=== PATIENT | male | born 1985 | race Caucasian/White ===

== ENCOUNTER 2017-10-05 01:18 | Emergency (ER) | payer SELFPAY ==
[2017-10-05 01:19] VITALS: BP 153/97; PULSE 104; RESP 19; TEMP 36.7; O2SAT 98; BMI 35.3
--- NOTE | 2017-10-05 01:54 | ED.VISSUMM ---
- ER Visit Summary Date of Service: 10/05/17 Chief Complaint: Earache on the right side History of Present Illness: The patient is a 32 M states he has had ear discomfort for 1-2 weeks. Feels like he can blow air out of his right ear canal. He denies however any pus or blood or discharge. Says his hearing is muffled bilaterally. Denies sore throat. Denies fever. He did have ear tubes as a small child. Physical Examination: Well-appearing male. Vital signs are stable afebrile. He does not look septic or toxic. He is in no acute distress. HEENT exam posterior pharynx unremarkable. Left TM is dull and red. Right TM is dull and red also. I do not see a perforation but by history it sounds like he may have perforated his right eardrum. But I do not see any blood in the canal. Or any obvious perforation at this time. Neck is nontender without lymphadenopathy. Lungs clear to auscultation bilaterally. Heart regular rhythm no murmur. Abdomen is soft and nontender. He is moving all 4 extremities. Neurologic exam is unremarkable. Test Results: None Emergency Department Course and Treatment: 1 dose of amoxicillin here. Treatment Plan: Amoxicillin 3 times daily for 10 days. Tylenol Motrin for pain. Follow-up with ENT if not improving. Disposition: Discharge Impression: Bilateral otitis media Rule out right ear perforation This note was generated with [employer] dictation software. It may contain incorrect words, spelling, and punctuation that were not noted in review of the chart prior to signing ED Disposition - Plan for ED Patient: Chief Complaint: Ear Problem Referrals: Care Physician,No Primary [Primary Care Provider] -
--- NOTE | 2017-10-05 01:56 | ED.DEP ---
ED Disposition - Plan for ED Patient: Disposition: Home or Assisted Living Chief Complaint: Ear Problem Instructions: ED Otitis Media Acute Adult Prescriptions: Amoxicillin 500 mg PO TID 10 Days tab Referrals: Parth Manning MD [STAFF PHYSICIAN] - Additional Instructions: Motrin and Tylenol for pain. Amoxicillin 3 times a day for 10 days to treat your ear infections. If not improving follow-up with Dr. Parth Manning as an ear nose and throat doctor.
[2017-10-05] MEDS: AMOXICILLIN 500 MG CAPSULE PO (03:06)
--- NOTE | 2017-10-05 03:09 | ED.RN ---
DISCHARGE INSTRUCTIONS GIVEN TO AND REVIEWED WITH PATIENT, PATIENT DENIES QUESTIONS OR CONCERNS AND VOICES UNDERSTANDING OF DISCHARGE INSTRUCTIONS. PT AMBULATES OUT OF ROOM WITHOUT DIFFICULTY.
== END 2017-10-05 03:10 | disposition home or self-care (01) ==
PROVIDERS: Emergency Provider Emergency Medicine
DX: H66.93 Otitis media, unspecified, bilateral (principal); Z72.0 Tobacco use
CPT/HCPCS: 99283

== ENCOUNTER 2018-09-26 08:45 | Emergency (ER) | payer MEDICAID, SELFPAY ==
[2018-09-26 08:47] VITALS: BP 138/78; PULSE 111; RESP 17; TEMP 36.7; O2SAT 98; BMI 36.6
[2018-09-26 09:50] VITALS: BP 130/89; PULSE 95; RESP 13; TEMP 36.6; O2SAT 95
[2018-09-26 10:44] VITALS: BP 138/91; PULSE 94; RESP 14; O2SAT 99
[2018-09-26 10:45] VITALS: BP 131/99; BP 134/88; BP 141/98; BP 142/100; PULSE 103; PULSE 94; PULSE 95; RESP 13; RESP 14; RESP 16; RESP 18; O2SAT 100; O2SAT 97; O2SAT 99
[2018-09-26 11:01] VITALS: BP 131/99; PULSE 96; PULSE 97; RESP 14; RESP 16; TEMP 36.6; O2SAT 96; O2SAT 97
--- NOTE | 2018-09-26 11:11 | ED.DCSUM_ITS ---
- ER Visit Summary Date of Service: 09/26/18 Chief Complaint: Perineal abscess History of Present Illness: The patient is a 33 M who presents with a 1 week history of pain and swelling in his perineum. He states there is been some spontaneous drainage from it but it continues to enlarge. He notes irritation of the bilateral thighs from the drainage. No fevers. No history of the same. He has a history of drug addiction and is currently on Suboxone Physical Examination: Afebrile vital signs are stable There is an obvious 2 cm abscess in the perineum on the left side of midline. There is minimal erythema. This does not appear to involve the scrotum/penis or the perianal area. Sensation is intact. Emergency Department Course and Treatment: Patient provided informed consent for the use of etomidate for procedural sedation to perform incision and drainage. Patient received 15 mg of etomidate. Adequate sedation was rapidly achieved the abscess was locally anesthetized with 1% lidocaine. 1 cm incision was made with expression of large amount of pus. Wound was gently probed for loculations and irrigated. It was packed with about 6 inches of iodoform packing. Patient recovered without incident. Patient will be placed on Keflex and Bactrim. I have asked that he follow-up with general surgery. Local wound care at home discussed. Packing will need to be removed in 72 hours. Impression: 1. Perineal abscess 2. Incision and drainage by physician 3. Procedural sedation by physician This note was generated with [employer] dictation software. It may contain incorrect words, spelling, and punctuation that were not noted in review of the chart prior to signing ED Disposition - Plan for ED Patient: Disposition: Home or Assisted Living Instructions: ED Abscess IandD Prescriptions: Cephalexin [Keflex] 500 mg PO Q6 #28 cap Smz/Tmp Ds [Bactrim Ds] 1 tab PO BID #14 tab Referrals: Ad Mcguire MD [STAFF PHYSICIAN] - (in 2-3 days for wound check)
[2018-09-26 11:28] VITALS: BP 131/99; PULSE 97; RESP 18; O2SAT 95
== END 2018-09-26 11:29 | disposition home or self-care (01) ==
PROVIDERS: Emergency Provider Emergency Medicine
DX: L02.215 Cutaneous abscess of perineum (principal); K21.9 Gastro-esophageal reflux disease without esophagitis; Z72.0 Tobacco use; Z79.899 Other long term (current) drug therapy
CPT/HCPCS: 10060; 96374; 99284; J7030; A4216

== ENCOUNTER 2019-05-26 18:44 | Emergency (ER) | payer MEDICAID, SELFPAY ==
[2019-05-26 18:45] VITALS: BP 146/116; PULSE 106; RESP 15; TEMP 36.8; O2SAT 97; BMI 30.8
--- NOTE | 2019-05-26 20:03 | ED.DCSUM_ITS ---
- ER Visit Summary Date of Service: 05/26/19 Chief Complaint: Rash History of Present Illness: The patient is a 34 M who presents with a rash over his body. This has been there for weeks. It is itchy and red. He believes he was exposed to some kind of bugs or mites. He says that occasionally something that looks like a small wire comes out of the wounds. He denies any travel. Denies any fever or systemic symptoms. 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 He is currently on Suboxone. He has occasional diarrhea but no other symptoms. Physical Examination: Afebrile and vital signs unremarkable. Alert and oriented. No acute distress. Patient has multiple slightly raised erythematous lesions over his skin diffusely. Some of them appear to be excoriated and they appear to be slightly different ages. I do not appreciate any foreign bodies or breaks in the skin. Palms and soles are not involved. No painful nodules or splinter hemorrhages. No skin peeling. Eyes and mucous membranes are unremarkable. Heart regular rate and rhythm. No murmurs. Lungs clear. Abdomen soft and nontender. Test Results: None indicated Emergency Department Course and Treatment: Patient's rash appears to be consistent with some type of bites with excoriation. Some of them appeared like they may be developing a surrounding infection. There is no abscess. No red flag features. Will treat with Benadryl, Bactrim, Keflex. Follow-up as an outpatient for further evaluation. Return for any new or worsening issues. Treatment Plan: As above Disposition: Discharge Impression: 1. Rash This note was generated with [employer] dictation software. It may contain incorrect words, spelling, and punctuation that were not noted in review of the chart prior to signing ED Disposition - Plan for ED Patient: Referrals: Care Physician,No Primary [Primary Care Provider] -
--- NOTE | 2019-05-26 20:06 | ED.DEP ---
ED Disposition - Plan for ED Patient: Instructions: Self-Care for Skin Rashes Prescriptions: Smz/Tmp Ds [Bactrim Ds] 1 tab PO BID #14 tab Prescription Printed Cephalexin [Keflex] 500 mg PO Q12 #14 cap Prescription Printed Referrals: Celeste Ram [NON-STAFF] -
[2019-05-26 20:28] VITALS: BP 115/99; PULSE 85; RESP 18; TEMP 36.8; O2SAT 97
[2019-05-26] MEDS: Cephalexin 250 MG Capsule 500 MG PO (20:30)
[2019-05-26] MEDS: Smz/Tmp Ds Tablet 1 TABLET PO (20:30)
[2019-05-26] MEDS: DiphenhydrAMINE 25 MG Capsule PO (20:30)
--- NOTE | 2019-05-26 20:34 | ED.RN ---
PT EDUCATED ON HOME GOING INSTRUCTIONS AND PRESCRIPTIONS. PT VERBALIZES UNDERSTANDING AND DENIES ANY FURTHER QUESTIONS. PT DRESSES SELF AND AMBULATES OUT OF DEPT BY SELF.
== END 2019-05-26 20:35 | disposition home or self-care (01) ==
LOC: ED 20:15
PROVIDERS: Emergency Provider Emergency Medicine
DX: R21 Rash and other nonspecific skin eruption (principal); F15.10 Other stimulant abuse, uncomplicated; Z72.0 Tobacco use
CPT/HCPCS: 99283

== ENCOUNTER 2021-07-23 16:59 | Emergency (ER) | payer BC, MEDICAID, SELFPAY ==
[2021-07-23 17:00] VITALS: BP 120/88; PULSE 106; RESP 16; TEMP 36.2; O2SAT 96; BMI 42.3
--- NOTE | 2021-07-23 18:43 | EDS_ITS ---
HPI HPI - URI History of Present Illness Chief Complaint: Weakness Detail of Chief Complaint: Nausea and vomiting Informant: patient Onset/Context/Timing Onset: Days Context: Gradual Onset Timing: Continuous Current Severity: Mild Maximum Severity: Mild Associated Symptoms Associated Symptoms: Positive for Nasal Congestion, Myalgias, Nausea, Vomiting and Nonproductive cough; Negative for Diarrhea Narrative Narrative: 36 -year-old diabetic male who states that less of days he has felt very well with some mild nausea and vomiting. Rhinorrhea and cough. He is unvaccinated against Covid. Also his mental sleep as well because he is out of his amitriptyline which has been unable to get refilled as of yet. He denies any fever nor abdominal pain. No dysuria. Prior similar symptoms: Yes Recent Illness/Hospitalization: No ROS ROS ED ROS Narrative Nausea and vomiting. Cough. Review of Systems ROS Unobtainable: Denies due to encephalopathy Constitutional Constitutional ED: Denies chills or fever(s) Eyes Eyes: Denies change in vision ENT ENT ED: Denies ear pain Cardiovascular Cardiovascular: Denies chest pain or palpitations Respiratory/Chest Respiratory/Chest: Reports cough; Denies dyspnea Gastrointestinal Gastrointestinal: Reports nausea and vomiting; Denies abdominal pain or diarrhea Genitourinary Genitourinary ED: Denies dysuria Musculoskeletal Musculoskeletal: Reports myalgias Integumentary Denies rash Neurologic Neurologic: Denies headache(s) Psychiatric Psychiatric: Denies depression Endocrine Endocrinology: Denies polyuria Hematologic/Lymphatic Hematologic/Lymphatic: Denies easy bruising Allergic/Immunologic Allergic/Immunologic ED: Denies urticaria PFSH PFS Medical History Depression Home Medications esomeprazole magnesium [Nexium] 20 mg PO PRN PRN 10/29/16 [History Last Taken 11/05/16 07:00] cephalexin 500 mg PO Q6 #28 cap 09/26/18 [Rx Last Taken Unknown] sulfamethoxazole-trimethoprim 1 tab PO BID #14 tab 09/26/18 [Rx Last Taken Unknown] cephalexin 500 mg PO Q12 #14 cap 05/26/19 [Rx Last Taken Unknown] sulfamethoxazole-trimethoprim 1 tab PO BID #14 tab 05/26/19 [Rx Last Taken Unknown] amitriptyline 50 mg PO QHS 7 Days #7 tab 07/23/21 [Rx Last Taken Unknown] Allergy/AdvReac Type Severity Reaction Status Date / Time morphine AdvReac Nausea Verified 09/26/18 08:47 Social History Smoking Status: Former smoker EXAM Physical Exam Narrative Exam Narrative: 36-year-old male no acute distress vital signs stable afebrile. Pulse ox 96% on room air no signs hypoxia. He does not look septic nor toxic nor dehydrated. HEENT exam unremarkable. Moist remembers. Neck nontender no JVD no lymphadenopathy. Lungs clear to auscultation bilaterally. Heart regular rhythm rate about 100 no murmur. Abdomen normal obese with soft nontender nondistended normal bowel sounds no peritoneal signs. Patient moving all 4 extremities. Ca lves are nontender without edema or cords. Exam is benign and consistent with a viral syndrome. Const Vital Signs: 07/23/21 17:00 07/23/21 18:38 Temperature 97.1 F L Temperature Source Temporal Pulse Rate 106 H Respiratory Rate 16 Respiratory Effort Non-Labored Blood Pressure 120/88 H Blood Pressure Mean 98 Pulse Ox 96 Oxygen Delivery Method Room Air Positive well nourished, well developed and obese; Negative for cachectic or contractures General Appearance ED: well developed and NAD; Negative for cachectic, contractures, cyanotic, diaphoretic or pallor Nutritional Appearance: obese; Negative for cachectic HEENT Reports moist mucous membranes normocephalic and atraumatic; Negative for scalp tenderness Face and Sinus: Negative for sinus tenderness External Ear: external ears normal Eyes PERRL and EOMs intact bilaterally Neck no lymphadenopathy, supple, no meningeal signs and no JVD General: Negative for anterior neck swelling or lymphadenopathy Resp normal respiratory effort and clear to auscultation bilaterally Auscultation: Negative for rales, rhonchi or wheezes Cardio S1 normal heart sound, S2 normal heart sound and no murmurs Rate: regular rate Rhythm: regular rhythm GI non-tender, non-distended and no masses Inspection: Negative for abdominal distention Auscultation: normoactive bowel sounds Palpation: soft; Negative for tender or guarding Back/Spine no CVA tenderness and normal ROM General Back: CVA tenderness Cervical Spine: Negative for cervical spine tenderness Thoracic Spine / Upper Back: Negative for thoracic spinal tenderness Extremity normal to inspection and full ROM General Extremety ED: Negative for cyanosis or tenderness General Extremity: Negative for cyanosis Neuro oriented x3 Sensorium / Orientation: alert, oriented to person, oriented to place and oriented to time; Negative for orientation impaired, lethargic or stuporous Motor Exam: strength 5/5 throughout; Negative for general weakness or strength abnormal Psych mental status grossly normal Attitude: No agitated Mood & Affect: Negative for depressed or tearful Skin General Skin Exam: Negative for jaundice or pallor Lesions: no lesions Rashes: no rashes MDM MDM MDM Narrative Medical decision making narrative: 36-year-old male with a viral syndrome. Will check his blood sugars since he is diabetic and obtain a Covid test. Treated with p.o. Motrin. Repeat and patient is doing well at 7: 52 p.m. and will be discharged home. Treat as a viral syndrome. Fluids and rest. Lab Data Attestation: I reviewed the patient's lab results. Lab results narrative: Covid test is negative. Labs: Laboratory Results - last 24 hr 07/23/21 18:51 POC Glucose 137 H Discharge Plan Triage Chief Complaint: Weakness Other Complaint: Shortness of Breath ED Provider: Chapo Eagle Dx/Rx/DC Orders Clinical Impression: Viral syndrome, History of diabetes mellitus, Has run out of medications Instructions: ED Viral Syndrome (Adult) Prescriptions: New amitriptyline 50 mg tablet 50 mg PO QHS 7 Days Qty: 7 RF: 0 No Action esomeprazole magnesium [Nexium] 20 MG capsule 20 mg PO PRN PRN (Reason: Heartburn) RF: 0 sulfamethoxazole-trimethoprim 1 TABLET tablet 1 tab PO BID Qty: 14 RF: 0 cephalexin 500 MG capsule 500 mg PO Q6 Qty: 28 RF: 0 sulfamethoxazole-trimethoprim 1 TABLET tablet 1 tab PO BID Qty: 14 RF: 0 cephalexin 500 MG capsule 500 mg PO Q12 Qty: 14 RF: 0 Primary Care Provider: Care Physician,No Primary Referrals: Care Physician,No Primary [Primary Care Provider] - Activity Restrictions/Additional Instructions: Plenty of fluids and rest. I wrote you for a week's worth of amitriptyline take it as prescribed. Follow-up with your primary care physician. Watch your blood sugars closely. Disposition Disposition: Home, Self Care
[2021-07-23] MEDS: Ibuprofen 600 MG Tablet PO (18:48)
[2021-07-23 18:56] LABS: Bedside Glucose 137 mg/dL (70-110)
[2021-07-23 19:57] VITALS: RESP 16
== END 2021-07-23 20:01 | disposition home or self-care (01) ==
PROVIDERS: Emergency Provider Emergency Medicine; Visit Provider Emergency Medicine
DX: B34.9 Viral infection, unspecified (principal); E11.9 Type 2 diabetes mellitus without complications; R11.2 Nausea with vomiting, unspecified; R06.02 Shortness of breath; Z87.891 Personal history of nicotine dependence; R09.81 Nasal congestion; M79.10 Myalgia, unspecified site; R53.1 Weakness; R05.9 Cough, unspecified
CPT/HCPCS: 82962; 87426; 99283

== ENCOUNTER 2023-03-05 06:49 | Emergency (ER) | payer MEDICAID, SELFPAY ==
[2023-03-05 06:55] VITALS: BP 156/86; PULSE 76; RESP 16; TEMP 36.6; O2SAT 98; BMI 45.3
--- NOTE | 2023-03-05 07:27 | EDS_ITS ---
HPI History of Present Illness Chief Complaint: GI Bleed Narrative Narrative: Patient presents with a bleeding hemorrhoid. He lifts heavy at work and has been somewhat constipated recently. He has a history of hemorrhoids in the past. No fevers or chills no abdominal pain. [facility] Medical History Depression Home Medications esomeprazole magnesium 20 mg capsule,delayed release (Nexium) 20 mg PO PRN PRN Heartburn 10/29/16 [History Last Taken 11/05/16 07:00] sulfamethoxazole 800 mg-trimethoprim 160 mg tablet 1 tab PO BID #14 tabs 09/26/18 [Rx Last Taken Unknown] sulfamethoxazole 800 mg-trimethoprim 160 mg tablet 1 tab PO BID #14 tabs 05/26/19 [Rx Last Taken Unknown] divalproex 500 mg tablet,delayed release 250 mg PO DAILY 03/05/23 [History Last Taken Unknown] docusate sodium 100 mg capsule (Colace) 100 mg PO BID #30 caps 03/05/23 [Rx Last Taken Unknown] lamotrigine 200 mg tablet 200 mg PO DAILY 03/05/23 [History Last Taken Unknown] metformin 500 mg tablet 500 mg PO BID 03/05/23 [History Last Taken Unknown] pantoprazole 40 mg tablet,delayed release 40 mg PO DAILY 03/05/23 [History Last Taken Unknown] Allergy/AdvReac Type Severity Reaction Status Date / Time morphine AdvReac Nausea Verified 03/05/23 06:51 Social History Smoking Status: Former smoker ROS ROS ED ROS Narrative General: No fever Gastrointestinal: No abdominal pain, nausea vomiting or diarrhea. Some constipation Rectal: Hemorrhoid as in HPI Genitourinary: No dysuria Musculoskeletal: Denies myalgias no difficulty with ambulation EXAM Physical Exam Narrative Exam Narrative: Physical exam General: Well nourished, Well developed, No Acute Distress Head: Normocephalic, Atraumatic Abdomen: Soft, Nontender, Nondistended Rectal there is an external hemorrhoid which is painful and thrombosed. Back: Nontender, Normal Inspection. Negative for: CVA tenderness Extremities: Nontender, No edema Skin: Normal color, No rash Const Vital Signs: 08/09/23 06:55 Temperature 97.8 F Temperature Source Oral Pulse Rate 76 Respiratory Rate 16 Blood Pressure 156/86 H Blood Pressure Mean 109 Pulse Ox 98 Oxygen Delivery Method Room Air MDM MDM MDM Narrative Medical decision making narrative: Patient has external hemorrhoid with some bleeding. I do not believe there is an upper or lower GI bleed I believe all his bleeding is from the hemorrhoid since I am visualizing. The hemorrhoid was drained since it is thrombosed. Patient will be discharged with stool softeners. At this time I do not see a reason for antibiotics. I will refer to GI for definitive management. Procedures Other Procedures Procedure(s): Incision and drainage of thrombosed external hemorrhoid Verbal consent 1% lidocaine about 4 mL were used I used a #15 blade and made 2 small incisions on either side of the hemorrhoid I used hemostats to break the clots, pressure was used and the clots were removed. Patient tolerated procedure well. Discharge Plan Triage Chief Complaint: GI Bleed ED Provider: Gadiel Caro Dx/Rx/DC Orders Clinical Impression: External hemorrhoid, thrombosed, RB (rectal bleeding) Instructions: ED Hemorrhoids Prescriptions: New docusate sodium [Colace] 100 mg capsule 100 mg PO BID Qty: 30 0RF No Action esomeprazole magnesium [Nexium] 20 MG capsule 20 mg PO PRN PRN (Reason: Heartburn) sulfamethoxazole-trimethoprim 1 TABLET tablet 1 tab PO BID Qty: 14 0RF sulfamethoxazole-trimethoprim 1 TABLET tablet 1 tab PO BID Qty: 14 0RF metformin 500 mg tablet 500 mg PO BID Patient Comments: take 1 tablet by mouth twice a day with meals pantoprazole 40 mg tablet,delayed release (DR/EC) 40 mg PO DAILY lamotrigine 200 mg tablet 200 mg PO DAILY Patient Comments: TAKE 1 TABLET BY MOUTH EVERY DAY divalproex 500 mg tablet,delayed release (DR/EC) 250 mg PO DAILY Patient Comments: take 1 tablet by mouth once daily Stand Alone Forms: ED Work / School Excuse Primary Care Provider: JD SEGURA Referrals: Kaleb Garcia DO [Med Staff - Active Staff] - 3-5 Days JD SEGURA NP-C [Primary Care Provider] - Disposition Disposition: Home, Self Care
[2023-03-05] MEDS: Lidocaine 1% (20 ml mdv) 20 ML Vial INFILT (07:41)
== END 2023-03-05 07:45 | disposition home or self-care (01) ==
PROVIDERS: Emergency Provider Emergency Medicine; PCP Nurse Practitioner; Visit Provider Emergency Medicine
DX: K64.5 Perianal venous thrombosis (principal); Z87.891 Personal history of nicotine dependence
CPT/HCPCS: 46083; 99282

== ENCOUNTER 2023-05-01 08:23 | Emergency (ER) | payer MEDICAID, SELFPAY ==
[2023-05-01 08:24] VITALS: BP 138/85; PULSE 85; RESP 16; TEMP 36.6; O2SAT 97; BMI 43.7
--- NOTE | 2023-05-01 08:47 | EDS_ITS ---
HPI HPI - GI History of Present Illness Chief Complaint: GI Bleed Detail of Chief Complaint: Rectal bleeding. Informant: patient Abdominal Pain/Flank Pain Onset: Today Context: Gradual Onset Timing: Intermittent Current Severity: Mild Maximum Severity: Mild Nausea/Vomiting/Emesis GI Symptom: Negative for Nausea or Vomiting Diarrhea/Melena/Hematochezia GI Symptom: Positive for Diarrhea Onset: Yesterday Associated Symptoms Associated Symptoms: Negative for Dysuria, Frequency or Hematuria Narrative Narrative: 38-year-old male history of prior hemorrhoids, diabetes, hypertension and mental health issues. He is on no blood thinners. He had diarrhea yesterday. Today he noticed some rectal bleeding. No significant pain. No fever. Denies any hematemesis. No black stools. Denies feeling anemic. No bruising or nosebleeds. Prior history of hemorrhoids that were excised. Prior similar symptoms: Yes Recent Illness/Hospitalization: No PFSH [facility] Medical History Depression Home Medications esomeprazole magnesium 20 mg capsule,delayed release (Nexium) 20 mg PO PRN PRN Heartburn 10/29/16 [History Last Taken 11/05/16 07:00] sulfamethoxazole 800 mg-trimethoprim 160 mg tablet 1 tab PO BID #14 tabs 09/26/18 [Rx Last Taken Unknown] sulfamethoxazole 800 mg-trimethoprim 160 mg tablet 1 tab PO BID #14 tabs 05/26/19 [Rx Last Taken Unknown] divalproex 500 mg tablet,delayed release 250 mg PO DAILY 03/05/23 [History Last Taken Unknown] docusate sodium 100 mg capsule (Colace) 100 mg PO BID #30 caps 03/05/23 [Rx Last Taken Unknown] lamotrigine 200 mg tablet 200 mg PO DAILY 03/05/23 [History Last Taken Unknown] metformin 500 mg tablet 500 mg PO BID 03/05/23 [History Last Taken Unknown] pantoprazole 40 mg tablet,delayed release 40 mg PO DAILY 03/05/23 [History Last Taken Unknown] Allergy/AdvReac Type Severity Reaction Status Date / Time morphine AdvReac Nausea Verified 05/01/23 08:24 Social History Smoking Status: Former smoker ROS ROS ED ROS Narrative Diarrhea yesterday. Review of Systems ROS Unobtainable: Denies due to encephalopathy Constitutional Constitutional ED: Denies chills or fever(s) ENT ENT ED: Denies ear pain Cardiovascular Cardiovascular: Denies chest pain Respiratory/Chest Respiratory/Chest: Denies cough or dyspnea Gastrointestinal Gastrointestinal: Reports diarrhea; Denies abdominal pain, constipation, melena, nausea or vomiting Genitourinary Genitourinary ED: Denies dysuria or hematuria Musculoskeletal Musculoskeletal: Denies arthralgias Integumentary Denies abscess Neurologic Neurologic: Denies headache(s) Psychiatric Psychiatric: Denies anxiety Endocrine Endocrinology: Denies polydipsia Hematologic/Lymphatic Hematologic/Lymphatic: Denies easy bleeding Allergic/Immunologic Allergic/Immunologic ED: Denies mouth swelling or tongue swelling EXAM Physical Exam Narrative Exam Narrative: Well-appearing 38-year-old male. Vital signs stable afebrile. Blood pressure 138/85. Patient does not look septic toxic or in distress. HEENT exam unremarkable. Lungs clear. Heart regular rhythm no murmur. Rate about 85. Abdomen soft nontender. Moving all 4 extremities. Annual exam he had 2 small hemorrhoids. They were not significantly tender. There was currently no blood or active bleeding. The medical student did the rectal exam showed brown stool. Small amount of blood. No large clots. Neurologically is awake and alert. Const Vital Signs: 05/01/23 08:24 Temperature 98 F Temperature Source Temporal Pulse Rate 85 Respiratory Rate 16 Blood Pressure 138/85 H Blood Pressure Mean 102 Pulse Ox 97 Oxygen Delivery Method Room Air Positive well nourished and well developed; Negative for cachectic, contractures or unkempt General Appearance ED: well developed and NAD; Negative for unkempt, cachectic, contractures or pallor Nutritional Appearance: Negative for cachectic HEENT Reports moist mucous membranes normocephalic and atraumatic; Negative for trauma or tenderness Eyes EOMs intact bilaterally General Eye ED: Negative for pale conjunctiva or scleral icterus Neck no lymphadenopathy, supple and no JVD General: Negative for tenderness Carotids: Negative for other Lymph Lymphatic: Negative for other Resp normal respiratory effort and clear to auscultation bilaterally Effort and Inspection: Negative for respiratory distress Auscultation: Negative for rales, rhonchi or wheezes Cardio regular rate, regular rhythm, S1 normal heart sound, S2 normal heart sound and no murmurs Rate: Negative for bradycardia or tachycardic Rhythm: Negative for abnormal rhythm GI non-tender, non-distended and no masses GI Narrative: 2 small external hemorrhoids. No active bleeding or blood currently. Inspection: Negative for abdominal distention Auscultation: normoactive bowel sounds Palpation: soft; Negative for tender or guarding Back/Spine no CVA tenderness General Back: Negative for CVA tenderness Cervical Spine: Negative for cervical spine tenderness Thoracic Spine / Upper Back: Negative for thoracic spinal tenderness Lumbar Spine / Lower Back: Negative for lumbar spinal tenderness Coccyx: Negative for other Extremity full ROM General Extremety ED: Negative for edema or tenderness General Extremity: Negative for edema Neuro CN's II-XII intact bilaterally and moves all extremities Sensorium / Orientation: alert, oriented to person, oriented to place and oriented to time Motor Exam: strength 5/5 throughout Psych mental status grossly normal and thought process normal Appearance: Negative for unkempt Attitude: No agitated Mood & Affect: Negative for depressed, anxious or tearful Skin no wounds General Skin Exam: Negative for jaundice or pallor Lesions: no lesions Rashes: no rashes Trauma: Negative for abrasion Nails: Negative for discolored MDM MDM MDM Narrative Medical decision making narrative: 2-year-old male small rectal bleeding suspected secondary to hemorrhoids. He clinically has no signs of anemia, looks well and is not complaining of symptoms of fatigue or weakness. I do not think he needs any blood work. This just occurred today. There is no significant large thrombosed hemorrhoid. He does not need anything I&D. He will do outpatient follow-up with general surgery. Hemorrhoid cream and sitz bath's. Discharge Plan Triage Chief Complaint: GI Bleed ED Provider: Chapo Eagle Dx/Rx/DC Orders Clinical Impression: Bleeding external hemorrhoids, Rectal bleeding Instructions: ED Hemorrhoids Prescriptions: No Action esomeprazole magnesium [Nexium] 20 MG capsule 20 mg PO PRN PRN (Reason: Heartburn) sulfamethoxazole-trimethoprim 1 TABLET tablet 1 tab PO BID Qty: 14 0RF sulfamethoxazole-trimethoprim 1 TABLET tablet 1 tab PO BID Qty: 14 0RF metformin 500 mg tablet 500 mg PO BID Patient Comments: take 1 tablet by mouth twice a day with meals pantoprazole 40 mg tablet,delayed release (DR/EC) 40 mg PO DAILY lamotrigine 200 mg tablet 200 mg PO DAILY Patient Comments: TAKE 1 TABLET BY MOUTH EVERY DAY divalproex 500 mg tablet,delayed release (DR/EC) 250 mg PO DAILY Patient Comments: take 1 tablet by mouth once daily docusate sodium [Colace] 100 mg capsule 100 mg PO BID Qty: 30 0RF Primary Care Provider: JD SEGURA Referrals: Keegan Lopez MD [Med Staff - Active Staff] - As soon as possible JD SEGURA [employer] [Primary Care Provider] - Activity Restrictions/Additional Instructions: Soak in a tub of warm bath water. Hemorrhoidal cream like Preparation H twice a day. Call follow-up with a local surgeon to be evaluated to see if you need resection of the hemorrhoids. These may get better with the cream and soaks alone. You can also follow-up and schedule your colonoscopy. Return if much heavier bleeding or large clots. Disposition Disposition: Home, Self Care
== END 2023-05-01 09:01 | disposition home or self-care (01) ==
PROVIDERS: Emergency Provider Emergency Medicine; PCP Nurse Practitioner; Visit Provider Emergency Medicine
DX: K64.5 Perianal venous thrombosis (principal); E11.9 Type 2 diabetes mellitus without complications; R19.7 Diarrhea, unspecified; Z87.891 Personal history of nicotine dependence; I10 Essential (primary) hypertension; Z87.19 Personal history of other diseases of the digestive system
CPT/HCPCS: 99282